=== PATIENT | male | born 1980 | race Two or more races ===

== ENCOUNTER 2018-08-19 10:30 | Emergency (ER) | payer SELFPAY ==
[2018-08-19] MEDS ORDERED: Albuterol/Ipratropium NEB.SOL* Albuterol 2.5 MG/Ipratropium 0.5 MG 3 ML INH ONE (11:19)
[2018-08-19] MEDS ORDERED: guaiFENesin/CODIEN 100MG-10MG* 5 ML UDC PO ONE (11:19)
--- NOTE | 2018-08-19 11:20 | ED ---
Shortness of Breath - HPI Summary HPI Summary: 38 year old M presenting to [facility] with a chief complaint of difficulty breathing and productive cough since yesterday. The patient rates the pain 0/10 in severity. Symptoms aggravated by nothing. Symptoms alleviated by nothing. Patient states he had a fever yesterday that has since resolved. Patient denies ear pain and sore throat. Patient denies hx COPD and asthma. He denies smoking. - History of Current Complaint Chief Complaint: EDUpperRespComplaint Time Seen by Provider: 08/19/18 11:13 Hx Obtained From: Patient Onset/Duration: Lasting Days - 1, Still Present Timing: Constant Aggrevating Factors: Nothing Alleviating Factors: Nothing Associated Signs & Symptoms: Negative - ear pain, sore throat - Allergy/Home Medications Allergies/Adverse Reactions: Allergies Allergy/AdvReac Type Severity Reaction Status Date / Time No Known Allergies Allergy Verified 08/19/18 10:37 PMH/Surg Hx/FS Hx/Imm Hx Previously Healthy: Yes Respiratory History: Denies: Hx Asthma, Hx Chronic Obstructive Pulmonary Disease (COPD) - Surgical History Surgery Procedure, Year, and Place: None Infectious Disease History: No Infectious Disease History: Denies: Traveled Outside the [place] in Last 30 Days - Family History Known Family History: Positive: Diabetes - Social History Alcohol Use: Occasionally Hx Substance Use: No Substance Use Type: Reports: None Hx Tobacco Use: No Smoking Status (MU): Never Smoked Tobacco Review of Systems Negative: Fever Negative: Sore Throat, Ear Ache Positive: Shortness Of Breath, Cough All Other Systems Reviewed And Are Negative: Yes Physical Exam - Summary Physical Exam Summary: GENERAL NORMAL EXAM: VITAL SIGNS: Reviewed. GENERAL: Patient is a well-developed and nourished MALE who is lying comfortable in the stretcher. Patient is not in any acute respiratory distress. HEAD AND FACE: No signs of trauma. No ecchymosis, hematomas or skull depressions. No sinus tenderness. EYES: PERRLA, EOMI x 2, No injected conjunctiva, no nystagmus. EARS: Hearing grossly intact. Ear canals and tympanic membranes are within normal limits. MOUTH: Pharyngeal erythema NECK: Supple, trachea is midline, no adenopathy, no JVD, no carotid bruit, no c- spine tenderness, neck with full ROM. CHEST: Symmetric, no tenderness at palpation LUNGS: There is wheezing CVS: Regular rate and rhythm, S1 and S2 present, no murmurs or gallops appreciated. ABDOMEN: Soft, non-tender. No signs of distention. No rebound no guarding, and no masses palpated. Bowel sounds are normal. EXTREMITIES: FROM in all major joints, no edema, no cyanosis or clubbing. NEURO: Alert and oriented x 3. No acute neurological deficits. Speech is normal and follows commands. SKIN: Dry and warm. Triage Information Reviewed: Yes Vital Signs On Initial Exam: Initial Vitals Temp Pulse Resp BP Pulse Ox 98.2 F 73 16 148/102 98 08/19/18 10:37 08/19/18 10:37 08/19/18 10:37 08/19/18 10:37 08/19/18 10:37 Vital Signs Reviewed: Yes Diagnostics - Vital Signs Vital Signs Temp Pulse Resp BP Pulse Ox 08/19/18 10:37 98.2 F 73 16 148/102 98 - Laboratory Lab Statement: Any lab studies that have been ordered have been reviewed, and results considered in the medical decision making process. - Radiology CXR Radiology Interpretation Completed By: Radiologist Summary of Radiographic Findings: 1. No evidence for pneumonia. Negative exam. ED physician has reviewed this report. Course/Dx - Course Assessment/Plan: 38 year old M presenting to [facility] with a chief complaint of difficulty breathing and productive cough since yesterday. The patient rates the pain 0/10 in severity. Symptoms aggravated by nothing. Symptoms alleviated by nothing. Patient states he had a fever yesterday that has since resolved. Patient denies ear pain and sore throat. Patient denies hx COPD and asthma. He denies smoking. A chest x-ray impression: No evidence for pneumonia. Negative exam. Influenza A and B are negative, rapid strep is negative. In the ED course, the patient is wheezing, therefore he was given 1 dose of DuoNeb and his symptoms improved. He also was given Robitussin for the cough. Therefore, I believe that the patient has a viral infection which is causing some wheezing/ bronchitis therefore he will be given an albuterol pump and Robitussin prescription. He will follow with the primary care physician in the next couple days for further workup and management. I discussed all the findings and test results with the patient. Patient was instructed to return to the emergency room immediately if any of the symptoms return or worsens. Plan of care was discussed with the patient and understands and agrees. All questions were answered at patient satisfaction. There were no further complaints or concerns. Lung exam before discharge: CTA B/L. Good air exchange. No wheezing or crackles heard. CVS: S1 and S2 present. No murmurs appreciated. Patient is alert and oriented x 3. Patient is hemodynamically stable. Patient will be discharged home with follow up PCP in the next 2-3 days. - Diagnoses Provider Diagnoses: Wheezing, Cough, URI, acute Discharge - Sign-Out/Discharge Documenting (check all that apply): Patient Departure - Discharge Patient Received Moderate/Deep Sedation with Procedure: No - Discharge Plan Condition: Stable Disposition: HOME Prescriptions: Albuterol HFA INHALER* [Ventolin HFA Inhaler*] 1 puff INH Q4H PRN #1 mdi PRN Reason: Wheezing guaiFENesin/CODIEN 100MG-10MG* [Robitussin AC 100Mg-10Mg*] 5 ml PO Q4H PRN #90 ml MDD 30 ml PRN Reason: Cough Patient Education Materials: Upper Respiratory Infection (ED) Referrals: [facility] [Outside] - 3 Days Additional Instructions: Follow up with the [facility] in 3 days. Return to the Emergency Department for new or worsening symptoms. - Billing Disposition and Condition Condition: STABLE Disposition: Home - Attestation Statements Document Initiated by Juliana: Yes Documenting Scribe: Jocelyn Elizalde Provider For Whom Juliana is Documenting (Include Credential): Harman Heller MD Scribe Attestation: Jocelyn Mccloud scribed for Harman Heller MD on 08/19/18 at 1850. Scribe Documentation Reviewed: Yes Provider Attestation: The documentation as recorded by the Jocelyn perez accurately reflects the service I personally performed and the decisions made by me, Harman Heller MD Status of Scribe Document: Viewed
[2018-08-19 12:19] LABS: Rapid Strep Molecular Negative (Negative)
[2018-08-19 12:25] LABS: Influenza A Molecular NEGATIVE (Negative); Influenza B Molecular NEGATIVE (Negative)
[2018-08-19 12:51] VITALS: BP 144/65
== END 2018-08-19 12:50 | disposition home or self-care (01) ==
LOC: ED 10:30
DX: J06.9 Acute upper respiratory infection, unspecified (principal)
CPT/HCPCS: 71046; 87651; 99282; A9270-GY